=== PATIENT | male | born 1990 | race Caucasian/White ===

== ENCOUNTER 2020-04-29 14:54 | Emergency (ER) | payer OTHER ==
[~2020-04-29 14:54] MED LIST: BACTRIM DS TAB1 EACH PO; BACTROBAN OINT22 GM TOP; FLEXERIL 10 MG10 MG PO; IBUPROFEN600 MG PO; KEFLEX500 MG PO; ZOFRAN4 MG PO
[2020-04-29] MEDS ORDERED: IBUPROFEN600 MG PO (16:38)
[2020-04-29] MEDS ORDERED: CLEOCIN HCL300 MG PO (16:38)
[2020-04-29] MEDS ORDERED: BACTROBAN OINT22 GM EXT (16:38)
== END 2020-04-29 17:00 | disposition home or self-care (01) ==
LOC: ER1 14:54
DX: S81.012A Laceration without foreign body, left knee, initial encounter (principal); Z23 Encounter for immunization; F17.290 Nicotine dependence, other tobacco product, uncomplicated; Z88.0 Allergy status to penicillin; W31.2XXA Contact with powered woodworking and forming machines, initial encounter; Y92.009 Unspecified place in unspecified non-institutional (private) residence as the place of occurrence of the external cause
CPT/HCPCS: 12002; 73564; 90471; 90715; 99283

== ENCOUNTER 2020-05-15 13:45 | Emergency (ER) | payer OTHER ==
[~2020-05-15 13:45] MED LIST changes: +BACTROBAN OINT22 GM EXT; +CLEOCIN HCL300 MG PO
[2020-05-15] MEDS ORDERED: BACTROBAN OINT22 GM EXT (15:44)
== END 2020-05-15 15:52 | disposition home or self-care (01) ==
LOC: ER1 13:45
DX: S81.012D Laceration without foreign body, left knee, subsequent encounter (principal); I10 Essential (primary) hypertension; F17.290 Nicotine dependence, other tobacco product, uncomplicated
CPT/HCPCS: 99282; 99283

== ENCOUNTER 2021-01-15 23:44 | Emergency (ER) | payer OTHER ==
[2021-01-16 00:34] LABS: HEMOGLOBIN 17.2 gm/dl (14.0-17.5); RED BLOOD COUNT 5.31 M/UL (4.20-5.50); WHITE BLOOD COUNT 10.1 K/UL (4.5-11.0)
[2021-01-16 01:10] LABS: BUN/CREATININE RATIO 19 (0-10)
== END 2021-01-16 03:55 | disposition home or self-care (01) ==
LOC: ER1 23:44
PROVIDERS: Emergency Medicine
DX: R07.9 Chest pain, unspecified (principal); I10 Essential (primary) hypertension; Z88.0 Allergy status to penicillin; Z20.822 Contact with and (suspected) exposure to COVID-19
CPT/HCPCS: 71045; 80053; 82550; 82553; 83690; 83874; 84484; 85025; 93005; 99285; U0002

== ENCOUNTER 2021-03-04 01:41 | Emergency (ER) | payer OTHER ==
[2021-03-04 04:24] LABS: HEMOGLOBIN 17.3 gm/dl (14.0-17.5); RED BLOOD COUNT 5.41 M/UL (4.20-5.50); WHITE BLOOD COUNT 8.6 K/UL (4.5-11.0)
[2021-03-04 05:03] LABS: BUN/CREATININE RATIO 26 (0-10)
== END 2021-03-04 05:30 | disposition left against medical advice (07) ==
LOC: ER1 01:41
PROVIDERS: Family Medicine
DX: Z53.21 Procedure and treatment not carried out due to patient leaving prior to being seen by health care provider (principal)
CPT/HCPCS: 71045; 80053; 82550; 82553; 83615; 83874; 84484; 85025; 86140; 93005

== ENCOUNTER 2021-04-20 19:28 | Emergency (ER) | payer OTHER ==
[2021-04-20] MEDS ORDERED: CYCLOBENZAPRINE10 MG PO (20:09)
== END 2021-04-20 20:15 | disposition home or self-care (01) ==
LOC: ER1 19:28
DX: S00.01XA Abrasion of scalp, initial encounter (principal); I10 Essential (primary) hypertension; Z88.0 Allergy status to penicillin; X58.XXXA Exposure to other specified factors, initial encounter; Y92.89 Other specified places as the place of occurrence of the external cause; Y99.0 Civilian activity done for income or pay
CPT/HCPCS: 99283